=== PATIENT | female | born 2000 | race Caucasian/White ===

== ENCOUNTER 2022-03-29 08:31 | Emergency (ER) | payer OTHER ==
[2022-03-29 09:33] LABS: HEMOGLOBIN 14.4 gm/dl (12.3-15.3); RED BLOOD COUNT 4.8 M/UL (4.00-5.10); WHITE BLOOD COUNT 6.4 K/UL (4.5-11.0)
[2022-03-29 09:57] LABS: BUN/CREATININE RATIO 16 (0-10)
== END 2022-03-29 12:03 | disposition home or self-care (01) ==
LOC: ER1 08:31
PROVIDERS: Family Medicine
DX: R07.2 Precordial pain (principal); F17.290 Nicotine dependence, other tobacco product, uncomplicated
CPT/HCPCS: 71046; 80053; 81001; 82550; 82553; 84484; 84703; 85025; 93005; 99285

== ENCOUNTER 2022-04-22 23:11 | Emergency (ER) | payer OTHER ==
[2022-04-23] MEDS ORDERED: PERCOCET 5/325 T1 EA PO (00:35)
== END 2022-04-23 00:42 | disposition home or self-care (01) ==
LOC: ER1 23:11
DX: K08.89 Other specified disorders of teeth and supporting structures (principal); F17.290 Nicotine dependence, other tobacco product, uncomplicated
CPT/HCPCS: 64400; 99282